=== PATIENT | male | born 1955 | race Caucasian/White ===

== ENCOUNTER → 2016-10-26 | Outpatient (CLI) | payer BC | LOC: RAD 10:31 | DX: M25.522 Pain in left elbow (principal); M25.562 Pain in left knee; M25.512 Pain in left shoulder | CPT/HCPCS: 73030; 73080; 73562 ==

== ENCOUNTER → 2020-06-13 | Outpatient (CLI) | payer OTHER ==
[~2020-06-13] MED LIST: ALBUTEROL2.5 MG/3 M INH; ALEVE220 MG PO; ANORO ELLIPTA1 EACH INH; CLARITIN10 MG PO; FLOMAX0.4 MG PO; FLONASE 0.05% N16 GM; HYDROCODON-ACE1 EAC4 PO; ICOSAPENT ETHYL PO; LEVOCETIRIZINE D5 MG PO; MECLIZINE HCL25 MG PO; NORCO 5-325 TA1 EACH PO; NORCO 7.5-3251 EACH PO; OMEPRAZOLE40 MG PO; PROAIR HFA8.5 GM INH; PROVENTIL HFA6.7 GM INH; TAMSULOSIN HCL0.4 MG PO; VENTOLIN HFA 66.7 GM INH; VIT D3 PO; ZYLOPRIM 100 M100 MG PO
== END ==
LOC: KOH-I 13:16
DX: Z12.2 Encounter for screening for malignant neoplasm of respiratory organs (principal); F17.210 Nicotine dependence, cigarettes, uncomplicated; R91.8 Other nonspecific abnormal finding of lung field; K76.9 Liver disease, unspecified
CPT/HCPCS: 71271

== ENCOUNTER → 2020-07-15 | Day surgery (SDC) | payer OTHER | END | disposition home or self-care (01) | LOC: OR 06:10 | DX: K31.7 Polyp of stomach and duodenum (principal); K57.30 Diverticulosis of large intestine without perforation or abscess without bleeding; K21.9 Gastro-esophageal reflux disease without esophagitis; F17.210 Nicotine dependence, cigarettes, uncomplicated; H40.9 Unspecified glaucoma; J40 Bronchitis, not specified as acute or chronic; N40.0 Benign prostatic hyperplasia without lower urinary tract symptoms; N20.0 Calculus of kidney; Z82.49 Family history of ischemic heart disease and other diseases of the circulatory system; Z82.61 Family history of arthritis; Z20.822 Contact with and (suspected) exposure to COVID-19; Z79.899 Other long term (current) drug therapy | CPT/HCPCS: J2704; J7040 ==

== ENCOUNTER → 2020-07-29 | Outpatient (CLI) | payer OTHER | LOC: EXRD 07-19 11:30 | DX: E04.1 Nontoxic single thyroid nodule (principal) | CPT/HCPCS: 76536 ==

== ENCOUNTER 2021-06-10 13:25 | Inpatient (IN) | payer MEDICARE ==
[~2021-06-10] VITALS: Ht 182.9 cm; Wt 99.8 kg
[2021-06-10 14:19] LABS: HEMOGLOBIN 16.5 gm/dl (14.0-17.5); RED BLOOD COUNT 5.4 M/UL (4.20-5.50); WHITE BLOOD COUNT 17.1 K/UL (4.5-11.0)
[2021-06-10 14:44] LABS: BUN/CREATININE RATIO 18 (0-10)
[2021-06-10] MEDS ORDERED: ALEVE220 M1 PO (17:59)
[2021-06-11 05:41] LABS: HEMOGLOBIN 14.8 gm/dl (14.0-17.5); WHITE BLOOD COUNT 13.9 K/UL (4.5-11.0)
[2021-06-11 05:45] LABS: RED BLOOD COUNT 4.72 M/UL (4.20-5.50)
[2021-06-11 06:43] LABS: BUN/CREATININE RATIO 29 (0-10)
--- NOTE | 2021-06-11 09:18 | NUR ---
PATIENTS OXYGEN SATURATION 84% ON ROOM AIR AT REST.
--- NOTE | 2021-06-11 15:25 | NUR ---
1405- Notified Dr. Galicia of blood pressure 86/48. stated she would adjust medications. Will continue to monitor.
[2021-06-12 07:04] LABS: HEMOGLOBIN 15.3 gm/dl (14.0-17.5); RED BLOOD COUNT 4.96 M/UL (4.20-5.50)
[2021-06-12 07:07] LABS: WHITE BLOOD COUNT 17.8 K/UL (4.5-11.0)
[2021-06-12 07:24] LABS: BUN/CREATININE RATIO 36 (0-10)
[2021-06-13 08:26] LABS: HEMOGLOBIN 14.3 gm/dl (14.0-17.5); RED BLOOD COUNT 4.6 M/UL (4.20-5.50); WHITE BLOOD COUNT 13.9 K/UL (4.5-11.0)
[2021-06-13 08:51] LABS: BUN/CREATININE RATIO 29 (0-10)
[2021-06-13] MEDS ORDERED: BUDESONIDE0.5 MG/2 M NEB (12:36)
[2021-06-13] MEDS ORDERED: IPRAT-ALBUT 0.5-3 ML NEB (12:36)
[2021-06-13] MEDS ORDERED: DOXYCYCLINE HY100 M2 PO (12:36)
[2021-06-13] MEDS ORDERED: TIZANIDINE HCL4 MG PO (12:36)
[2021-06-13] MEDS ORDERED: MEDROL DOSEPAK 24 MG PO (12:36)
== END 2021-06-13 13:41 | disposition home health service (06) | DRG 193 ==
LOC: ER1 13:25 → MED SURG 4 17:16 → CDU 17:16 → MED SURG 4 19:42
PROVIDERS: Emergency Medicine; ADMIT Internal Medicine
DX: J12.9 Viral pneumonia, unspecified (principal); J96.01 Acute respiratory failure with hypoxia; J44.1 Chronic obstructive pulmonary disease with (acute) exacerbation; Z20.822 Contact with and (suspected) exposure to COVID-19; J44.0 Chronic obstructive pulmonary disease with (acute) lower respiratory infection; C82.90 Follicular lymphoma, unspecified, unspecified site; J15.9 Unspecified bacterial pneumonia; F17.210 Nicotine dependence, cigarettes, uncomplicated; N40.0 Benign prostatic hyperplasia without lower urinary tract symptoms; D72.829 Elevated white blood cell count, unspecified; G89.29 Other chronic pain; Z82.0 Family history of epilepsy and other diseases of the nervous system; Z80.1 Family history of malignant neoplasm of trachea, bronchus and lung
CPT/HCPCS: 0240U; 36415; 36600; 71045; 71046; 72100; 72131; 80053; 82550; 82553; 82803; 83605; 83874; 83880; 84484; 85025; 85027; 85379; 85652; 86140; 87040; 87070; 87205; 93005; 94640; 94664; 94760; 96374; 96375; 96376; 97110; 97161; 99285; G0378; J0696; J1650; J2270; J2405; J2930

== ENCOUNTER → 2021-06-26 | Outpatient (CLI) | payer MEDICARE ==
[~2021-06-26] VITALS: Ht 182.9 cm; Wt 99.8 kg
[~2021-06-26] MED LIST changes: +ALEVE220 M1 PO; +BUDESONIDE0.5 MG/2 M NEB; +DOXYCYCLINE HY100 M2 PO; +IPRAT-ALBUT 0.5-3 ML NEB; +MEDROL DOSEPAK 24 MG PO; +TIZANIDINE HCL4 MG PO
== END ==
LOC: EROP 12:37
DX: Z23 Encounter for immunization (principal); U07.1 COVID-19; C85.90 Non-Hodgkin lymphoma, unspecified, unspecified site; J98.4 Other disorders of lung; I10 Essential (primary) hypertension; F17.290 Nicotine dependence, other tobacco product, uncomplicated
CPT/HCPCS: M0247; Q0247

== ENCOUNTER 2021-06-30 10:44 | Emergency (ER) | payer MEDICARE ==
[2021-06-30 12:40] LABS: HEMOGLOBIN 13.9 gm/dl (14.0-17.5); RED BLOOD COUNT 4.4 M/UL (4.20-5.50)
[2021-06-30 13:00] LABS: BUN/CREATININE RATIO 23 (0-10)
[2021-06-30] MEDS ORDERED: MUCINEX600 MG PO (14:29)
[2021-06-30] MEDS ORDERED: DOXYCYCLINE HY100 M2 PO (14:29)
[2021-06-30] MEDS ORDERED: DECADRON6 MG PO (14:31)
[2021-06-30] MEDS ORDERED: PROAIR DIGIHAL90 MCG INH (14:31)
== END 2021-06-30 16:17 | disposition home or self-care (01) ==
LOC: ER1 10:44
PROVIDERS: Emergency Medicine
DX: J18.9 Pneumonia, unspecified organism (principal); F17.200 Nicotine dependence, unspecified, uncomplicated
CPT/HCPCS: 36600; 71045; 80048; 82803; 83605; 83735; 83880; 84484; 85025; 93005; 94640; 96374; 96375; 99285; J2405; J7030

== ENCOUNTER → 2021-07-14 | Outpatient (CLI) | payer MEDICARE ==
[~2021-07-14] MED LIST changes: +DECADRON6 MG PO; +MUCINEX600 MG PO; +PROAIR DIGIHAL90 MCG INH
== END ==
LOC: KOH-I 11:14
DX: F17.210 Nicotine dependence, cigarettes, uncomplicated (principal); R91.8 Other nonspecific abnormal finding of lung field
CPT/HCPCS: 71271

== ENCOUNTER → 2021-08-25 | Outpatient (CLI) | payer MEDICARE ==
[2021-08-25 11:44] LABS: HEMOGLOBIN 15.5 gm/dl (14.0-17.5); RED BLOOD COUNT 4.85 M/UL (4.20-5.50)
[2021-08-25 12:01] LABS: BUN/CREATININE RATIO 15 (0-10)
== END ==
LOC: CT 11:07
PROVIDERS: Family Medicine
DX: R91.8 Other nonspecific abnormal finding of lung field (principal); R97.20 Elevated prostate specific antigen [PSA]; E55.9 Vitamin D deficiency, unspecified; E78.2 Mixed hyperlipidemia; C83.05 Small cell B-cell lymphoma, lymph nodes of inguinal region and lower limb; F17.210 Nicotine dependence, cigarettes, uncomplicated
CPT/HCPCS: 36415; 71260; 80053; 80061; 84153; 85027; Q9967

== ENCOUNTER → 2021-08-30 | Outpatient (CLI) | payer MEDICARE | LOC: KOH-I 11:18 | DX: C83.05 Small cell B-cell lymphoma, lymph nodes of inguinal region and lower limb (principal); R59.1 Generalized enlarged lymph nodes; F17.210 Nicotine dependence, cigarettes, uncomplicated; E04.2 Nontoxic multinodular goiter | CPT/HCPCS: 76536 ==